=== PATIENT | female | born 1965 | race Two or more races ===

== ENCOUNTER 2021-02-17 20:52 | Emergency (ER) | payer MEDICAID ==
[~2021-02-17] VITALS: Ht 162.6 cm; Wt 65.8 kg
[~2021-02-17 20:52] MED LIST: NORPTMEDS AD
[2021-02-18 00:56] VITALS: BP 119/75
== END 2021-02-18 01:49 | disposition home or self-care (01) ==
LOC: ER 20:53
DX: S82.51XA Displaced fracture of medial malleolus of right tibia, initial encounter for closed fracture (principal); S82.831A Other fracture of upper and lower end of right fibula, initial encounter for closed fracture; E11.9 Type 2 diabetes mellitus without complications; X50.1XXA Overexertion from prolonged static or awkward postures, initial encounter; Y93.89 Activity, other specified; Y92.89 Other specified places as the place of occurrence of the external cause; Y99.8 Other external cause status
CPT/HCPCS: 29515; 73610

== ENCOUNTER 2023-03-21 21:58 | Emergency (ER) | payer MEDICAID ==
[~2023-03-21] VITALS: Ht 162.6 cm; Wt 50.0 kg
[2023-03-21 21:58] VITALS: BP 115/77
[2023-03-22] MEDS ORDERED: CEPH500T PO (10:53)
== END 2023-03-22 02:22 | disposition left against medical advice (07) ==
LOC: ER 21:58
DX: S61.412A Laceration without foreign body of left hand, initial encounter (principal); Z53.21 Procedure and treatment not carried out due to patient leaving prior to being seen by health care provider; W25.XXXA Contact with sharp glass, initial encounter; Y93.89 Activity, other specified; Y92.89 Other specified places as the place of occurrence of the external cause; Y99.8 Other external cause status
CPT/HCPCS: 73130

== ENCOUNTER 2023-03-22 05:56 | Emergency (ER) | payer MEDICAID ==
[~2023-03-22] VITALS: Ht 160 cm; Wt 68.0 kg
[2023-03-22 07:04] VITALS: BP 112/77
[2023-03-22] MEDS ORDERED: ACETAMINOPHEN 500 MG TAB PO ONE (09:15)
[2023-03-22] MEDS ORDERED: NEOMYCIN-BACITRACIN-POLYM UNITDOSE PKG TOP OINT TOP ONE (10:15)
[2023-03-22] MEDS ORDERED: TETANUS-DIPTH-ACEL PERTUSSIS 0.5ML SYR Tdap IM ONE (10:15)
[2023-03-22] MEDS ORDERED: CEPH500T PO (10:53)
== END 2023-03-22 10:37 | disposition home or self-care (01) ==
LOC: ER 05:56
DX: S61.412A Laceration without foreign body of left hand, initial encounter (principal); E11.9 Type 2 diabetes mellitus without complications; W26.0XXA Contact with knife, initial encounter; Y93.89 Activity, other specified; Y92.090 Kitchen in other non-institutional residence as the place of occurrence of the external cause; Y99.8 Other external cause status
CPT/HCPCS: 12002; 73130; 90471; 90715

== ENCOUNTER 2023-03-25 08:27 | Emergency (ER) | payer MEDICAID ==
[~2023-03-25] VITALS: Ht 160 cm; Wt 67.1 kg
[~2023-03-25 08:27] MED LIST changes: +CEPH500T PO
[2023-03-25 09:09] VITALS: BP 106/71
== END 2023-03-25 09:18 | disposition home or self-care (01) ==
LOC: ER 08:27
DX: S61.412D Laceration without foreign body of left hand, subsequent encounter (principal); E11.9 Type 2 diabetes mellitus without complications; W26.8XXD Contact with other sharp object(s), not elsewhere classified, subsequent encounter

== ENCOUNTER 2023-03-29 10:27 | Emergency (ER) | payer MEDICAID ==
[~2023-03-29] VITALS: Ht 162.6 cm; Wt 67.5 kg
[2023-03-29 10:38] VITALS: BP 99/62; PULSE 6; RESP 18; O2SAT 98
== END 2023-03-29 16:11 | disposition left against medical advice (07) ==
LOC: ER 10:27
DX: Z48.02 Encounter for removal of sutures (principal); Z53.21 Procedure and treatment not carried out due to patient leaving prior to being seen by health care provider